=== PATIENT | male | born 1985 | race Caucasian/White ===

== ENCOUNTER 2023-08-07 13:18 | Emergency (ER) | payer OTHER | END 2023-08-07 15:01 | disposition home or self-care (01) | LOC: JP.ED 13:18 | DX: S90.32XA Contusion of left foot, initial encounter (principal); Z79.899 Other long term (current) drug therapy; W20.8XXA Other cause of strike by thrown, projected or falling object, initial encounter | CPT/HCPCS: 73630-26-LT; 73630-LT; 99283 ==